=== PATIENT | female | born 1995 | race African-American/Black ===

== ENCOUNTER 2020-08-03 10:17 | Emergency (ER) | payer OTHER ==
[~2020-08-03] VITALS: Ht 162.6 cm; Wt 61.7 kg
[~2020-08-03 10:17] MED LIST: FERR325T14 PO; IBUP-1060 PO; OXYC1TAB15 PO
--- NOTE | 2020-08-03 11:23 | PHYS DOC ---
Past Medical History Past Medical History: No Pertinent History Past Surgical History: Smoking Status: Never Smoker Alcohol Use: None General Adult EDM: Chief Complaint: VAGINAL PROBLEM HPI: HPI: Patient is a 24 year old AA female who presents to the emergency department today with complaints of vaginal itching and irritation with swelling around her clitoris that began last night. She denies any irregular vaginal discharge or odor. She states she is currently 24 weeks , 2, para 1. She denies any abdominal pain, nausea, vomiting, dysuria, hematuria, or low back pain. Patient denies any concerns for sexually transmitted infections. She currently denies any pain. Review of Systems: Review of Systems: Constitutional: Denies fever or chills. [] Respiratory: Denies cough or shortness of breath. [] GI: Denies abdominal pain, nausea, vomiting, or diarrhea. [] : Denies dysuria; see HPI [] Musculoskeletal: Denies back pain Integument: Denies rash. [] Psychiatric: Denies depression or anxiety. [] Heart Score: Risk Factors: Risk Factors: DM, Current or recent (<one month) smoker, HTN, HLP, family history of CAD, obesity. Risk Scores: Score 0 - 3: 2.5% MACE over next 6 weeks - Discharge Home Score 4 - 6: 20.3% MACE over next 6 weeks - Admit for Clinical Observation Score 7 - 10: 72.7% MACE over next 6 weeks - Early Invasive Strategies Allergies: Allergies: Allergies Coded Allergies Type Severity Reaction Last Updated Verified No Known Drug Allergies 08/03/20 No Physical Exam: PE: Constitutional: Well developed, well nourished, no acute distress, non-toxic appearance. HENT: Normocephalic, atraumatic, bilateral external ears normal, nose normal. Eyes: PERRLA, EOMI, conjunctiva normal, no discharge. Neck: Normal range of motion, no stridor. Cardiovascular: Heart rate regular rhythm Lungs & Thorax: Respirations even and unlabored, no retractions, no respiratory distress Pelvic Exam: Union Organizer present Nuria RN Abdomen: Nontender, soft, palpable fundus 4 fingerbreadths above the umbilicus External Genitalia: Normal Skin Speculum: Normal vaginal mucosa, large amount of frothy pale yellow va ginal discharge, OS closed Bimanual: No adnexal masses or tenderness, No CMT Skin: Warm, dry, no erythema, no rash. Back: No tenderness Extremities: No cyanosis, ROM intact, no edema. Neurologic: Alert and oriented X 3, no focal deficits noted. Psychologic: Affect normal, judgement normal, mood normal. Current Patient Data: Vital Signs: Vital Signs Date Time Temp Pulse Resp B/P (MAP) Pulse Ox O2 Delivery O2 Flow Rate FiO2 08/03/20 10:25 98.3 88 20 125/72 (89) 100 Room Air 98.3 EKG: EKG: [] Radiology/Procedures: Radiology/Procedures: [] Course & Med Decision Making: Course & Med Decision Making Pertinent Labs and Imaging studies reviewed. (See chart for details) 1117- Spoke with Dr. Alas about the patient. advised that GC culture and wet mount have been ordered. Will treat suspected yeast infection with clotrimazole. Patient declined treatment for gonorrhea and chlamydia, she reported she recently been tested and denies any concerns for this infection. Prescription written for metronidazole and clotrimazole wet mount was positive for yeast and BV. I advised the patient to follow-up with Dr. Daniel's office next week for reevaluation, return to ER if symptoms worsen. Patient verbalized an understanding of home care, medications, follow-up, and return to ED instructions and was in agreement with the plan of care. [] Dragon Disclaimer: Dragarielle Disclaimer: This electronic medical record was generated, in whole or in part, using a voice recognition dictation system. Departure Departure Impression: Primary Impression: Candidiasis of vagina during Additional Impression: BV (bacterial vaginosis) Disposition: 01 HOME, SELF-CARE Condition: STABLE Referrals: NURA DANIEL Jr, MD Patient Instructions: Bacterial Vaginosis, [id number], Candidal Vulvovaginitis, [id number] Additional Instructions: Fill the prescriptions and use them as directed. Follow-up with Dr. Daniel's office next week. Return to the ER if symptoms worsen. Scripts Metronidazole (METRONIDAZOLE) 500 Mg Tablet 1 TAB PO BID for 7 Days, #14 TAB 0 Refills Prov: CHANDUMARCOANTONIO APRN 08/03/20 Clotrimazole (HRUM-TWOHNXGG-5) 45 Gm Cream.appl 1 APPFUL VG QHS for 7 Days, #45 GM 0 Refills Prov: ANTONIO GARCIA APRN 08/03/20 Justicifation of Admission Dx: Justifications for Admission: Justification of Admission Dx: N/A ANTONIO GARCIA APRN Aug 03, 2020 11:23
[2020-08-03 11:36] LABS: BILIRUBIN,URINE NEGATIVE (NEG); CLARITY,URINE CLEAR; COLOR,URINE YELLOW; NITRITE,URINE NEGATIVE (NEG); PROTEIN,URINE NEGATIVE (NEG-TRACE); UROBILINOGEN,URINE 0.2 mg/dL (0.2 mg/dL)
[2020-08-03 11:53] LABS: BACTERIA,URINE FEW /HPF (0-FEW); RBC,URINE OCC /HPF (0-2)
[2020-08-03 11:54] LABS: SQUAMOUS EPITHELIAL CELL,UR MANY /LPF; YEAST,URINE PRESENT /HPF
[2020-08-03 13:21] VITALS: BP 133/83
[2020-08-03] MEDS ORDERED: METR-34 PO (13:29)
[2020-08-03] MEDS ORDERED: CLOT45CR9 VG (13:29)
[2020-08-06 22:07] LABS: GC PROBE Negative (Negative)
== END 2020-08-03 13:50 | disposition home or self-care (01) ==
LOC: ER 10:17
DX: O98.812 Other maternal infectious and parasitic diseases complicating pregnancy, second trimester (principal); B37.3 Candidiasis of vulva and vagina; O23.592 Infection of other part of genital tract in pregnancy, second trimester; B96.89 Other specified bacterial agents as the cause of diseases classified elsewhere; Z3A.24 24 weeks gestation of pregnancy
CPT/HCPCS: 81001; 87086; 87491; 87591; 99284; Q0111

== ENCOUNTER 2020-10-11 08:24 | Observation (INO) | payer OTHER ==
[~2020-10-11 08:24] MED LIST changes: +CLOT45CR9 VG; +METR-34 PO
[2020-10-11] MEDS ORDERED: IV RINGERS,LACTATED 1000ML 1,000 ML IV SCH (08:45)
[2020-10-11 09:17] LABS: BILIRUBIN,URINE NEGATIVE (NEG); CLARITY,URINE CLOUDY; COLOR,URINE YELLOW; NITRITE,URINE NEGATIVE (NEG); PROTEIN,URINE NEGATIVE (NEG-TRACE); UROBILINOGEN,URINE 0.2 mg/dL (0.2 mg/dL)
[2020-10-11 09:33] LABS: BACTERIA,URINE MODERATE /HPF (0-FEW); RBC,URINE OCC /HPF (0-2)
[2020-10-11] MEDS ORDERED: TERBUTALINE 1 MG/ML VIAL. SQ ONE (12:15)
[2020-10-11] MEDS ORDERED: TERBUTALINE 1 MG/ML VIAL. ONE (12:19)
[2020-10-11 12:25] VITALS: BP 135/75
--- NOTE | 2020-10-11 15:05 | RAD ---
Examination: OB LIMITED History: Abdomen pain near previous scar / Comparison/Correlation: 07/04/2020 Findings: Limited OB ultrasound exam was performed. Single living intrauterine gestation is present with heart rate of 152 bpm. motion is evident. Fluid index is 9.1 cm. Anteriorly located placenta is present. Cephalic lie noted. Biparietal diameter is 8.38 cm corresponding to 33 weeks 5 day. Head circumference is 30.52 cm corresponding to 34 weeks 0 days. Abdominal circumference is 29.05 cm corresponding to 32 weeks 0 day. Femur length is 6.18 cm corresponding to 32 weeks 0 day. Head circumference abdominal circumference ratio is 1.05 Estimated weight is 2077 g Gestational age by ultrasound is 33 weeks 1 day with EDC of 11/28/2020 Maternal uterine cervix measured 4.44 cm. No suspicious finding is present at the site of previous scar. Impression: Single living intrauterine gestation with cephalic lie is present. Average ultrasound age of 33 weeks 1 day. Adequate interval growth since the prior exam. No suspicious process at the site of reported pain. Electronically signed by: Dane Coulter MD (10/11/2020 3:02 PM) [facility]
== END 2020-10-11 16:30 | disposition home or self-care (01) ==
LOC: 3 SO LND 08:24
PROVIDERS: ADMIT Obstetrics & Gynecology; ATTEND Obstetrics & Gynecology
DX: O26.893 Other specified pregnancy related conditions, third trimester (principal); R10.30 Lower abdominal pain, unspecified; Z3A.34 34 weeks gestation of pregnancy; Z98.891 History of uterine scar from previous surgery
CPT/HCPCS: 59025; 76815; 81001; 87086; 96360; 96361; 96372; G0378; G0379; J3105; J7120